=== PATIENT | female | born 1990 | race Caucasian/White ===

== ENCOUNTER 2020-06-22 23:20 | Inpatient (IN) | payer OTHER, SELFPAY ==
[~2020-06-22] VITALS: Ht 160 cm; Wt 75.9 kg
[2020-06-22 23:25] VITALS: BP_SYST 115
--- NOTE | 2020-06-22 23:25 | NUR ---
PT TO BED 2, GOWNED AND ATTACHED TO MONITOR.
--- NOTE | 2020-06-22 23:25 | NUR ---
Patient AAO x 4 and ambulatory arrived to ED C/O allergic reaction and N/V/D. Patient stated having local anesthia for surgery at [facility]. current pain level is 7/10 on the pain scale. waiting for MD evaluation.
--- NOTE | 2020-06-22 23:28 | NUR ---
DR. PEREZ AT BEDSIDE TO EVALUATE PT STATUS.
[2020-06-22] MEDS ORDERED: LR 2,000 ML IV ONE (23:30)
--- NOTE | 2020-06-22 23:51 | NUR ---
DR. COX AT BEDSIDE TO EVALUATION PATIENT.
[2020-06-23] VITALS (20 sets, daily range): BP systolic 92–137
[2020-06-23 00:06] LABS: EOSINOPHILS % (AUTO) 0.2 % (0.0-4.0); HEMATOCRIT 38.6 % (36-48); LYMPHOCYTES # (AUTO) 0.3 K/uL (1.0-5.5); LYMPHOCYTES % (AUTO) 8.8 % (20.5-51.5); MEAN CORPUSCULAR HEMOGLOBIN 28 pg (27-31); MEAN CORPUSCULAR HGB CONC 34 % (32-36); MEAN CORPUSCULAR VOLUME 84 fL (79.0-98.0); MONOCYTES % (AUTO) 0.5 % (1.7-9.3); NEUTROPHILS # (AUTO) 2.6 K/uL (1.8-7.7); NEUTROPHILS % (AUTO) 90.5 % (40.0-70.0); PLATELET COUNT (AUTO) 187 K/uL (130-430); RED BLOOD CELL COUNT(AUTO) 4.63 MIL/uL (4.2-6.2); RED CELL DISTRIBUTION WIDTH 13.4 % (9.0-15.0); WHITE BLOOD COUNT (AUTO) 2.9 K/uL (4.8-10.8)
--- NOTE | 2020-06-23 00:12 | NUR ---
# 22 gauge angiocath placed to right wrist. Use of asceptic technique. Opsite placed over site. Blood return noted. Flushed with 10 cc of normal saline. No evidence of infiltration noted. Patient tolerated well.
--- NOTE | 2020-06-23 00:20 | NUR ---
Rectal temperature taken and read 104.8. Ice packs applied to armpit, groin and neck for immediate cooling measures.
[2020-06-23] MEDS ORDERED: ACETAMINOPHEN 650 MG SUPP.RECT RC ONE ×2 (00:30→00:31)
[2020-06-23 00:31] LABS: ANION GAP 16 (5-15); CALCIUM 8.2 mg/dL (8.4-11.0); CHLORIDE 103 mmol/L (98-107); CREATININE 1.51 mg/dL (0.55-1.30); GLUCOSE 108 mg/dL (70-99); POTASSIUM 3.1 mmol/L (3.5-5.1); SODIUM SERUM 140 mmol/L (136-145); UREA NITROGEN, BLOOD 21 mg/dL (8-21)
[2020-06-23 00:44] LABS: ALANINE AMINOTRANSFERASE 28 U/L (12-78); ALBUMIN 3.3 g/dL (3.4-4.8); ASPARTATE AMINOTRANSFERASE 21 U/L (10-37); BILIRUBIN,DIRECT 0.1 mg/dL (0.0-0.3); FREE T4 (FREE THYROXINE) 1.1 ng/dl (0.8-1.5); LIPASE 88 U/L (73-393); TOTAL BILIRUBIN 0.4 mg/dL (0.0-1.0)
[2020-06-23 00:45] LABS: GFR AFRICAN AMERICAN 53 mL/min (>90); HCG,QUANTITATIVE 1 mIU/ML (0-6)
[2020-06-23] MEDS ORDERED: LORazepam 2 MG/ML VIAL IVP ONE ×2 (00:45→01:30)
--- NOTE | 2020-06-23 00:50 | NUR ---
# 20 gauge angiocath placed to right arm. Use of asceptic technique. Opsite placed over site. Blood return noted. Blood for lab drawn from site. Flushed with 10 cc of normal saline. No evidence of infiltration noted. Patient tolerated well.
--- NOTE | 2020-06-23 00:55 | NUR ---
Dr. Purcell at bedside to administer Dantrium 80 mg additional dose. MD administered medication and patient VSS. no distress noted.
--- NOTE | 2020-06-23 01:10 | NUR ---
Dr. Purcell speaking with poision control for protocols for malignant hypothermia.
--- NOTE | 2020-06-23 01:10 | NUR ---
# 16 FR Yu catheter with use of sterile technique. Immediate return of 150 cc urine noted. Bedside drainage bag placed below level of bladder. Urine sample collected and sent to lab. Pt tolerated procedure. Patient arrived with yu in place, changed due to standard of practice prior to admission.
--- NOTE | 2020-06-23 01:20 | NUR ---
Internal rectal thermometer placed in the rectum at bedside. patient tolerated well. current temperature reading 103.5
--- NOTE | 2020-06-23 01:30 | NUR ---
Temperature reading 103.4. Dr. Purcell at bedside giving additional 200mg of Dantrium IVP per poison control protocols. Addendum: 06/23/20 at 0329 by [email or web address] Correction: Dr. Purcell at bedside to administer an addition 120mg of dantrolene IVP. Total infused 200mg.
--- NOTE | 2020-06-23 01:30 | NUR ---
Labs currently at bedside to collect 2nd lactic acid. patient tolerated well. sent to lab for analysis.
[2020-06-23 01:44] LABS: BILIRUBIN,URINE NEGATIVE (NEGATIVE); BLOOD, URINE 1+ (NEGATIVE); CLARITY/URINE CLEAR (CLEAR); COLOR,URINE YELLOW (YELLOW); GLUCOSE,URINE NEGATIVE (NEGATIVE); KETONES,URINE NEGATIVE (NEGATIVE); LEUKOCYTE ESTERASE ,URINE NEGATIVE (NEGATIVE); NITRITE, URINE NEGATIVE (NEGATIVE); PROTEIN URINE NEGATIVE (NEGATIVE); UROBILINOGEN,URINE 0.2 (0.2-1.0)
[2020-06-23] MEDS ORDERED: NACL 0.9% 1,000 ML IV ONE (01:45)
[2020-06-23] MEDS ORDERED: cefTRIAXone 1 GM IVPB PREMIX 50 ML IV ONE (01:45)
[2020-06-23] MEDS ORDERED: NS 500 ML IV ONE (01:45)
[2020-06-23] MEDS ORDERED: POTASSIUM CHLORIDE 10 MEQ TAB.PRT.SR PO ONE (01:45)
[2020-06-23] MEDS ORDERED: POTASSIUM CHLORIDE 20 MEQ TAB.PRT.SR PO ONE (01:45)
[2020-06-23] MEDS ORDERED: metroNIDAZOLE 500 mg/NS 100 ML IV ONE (01:45)
[2020-06-23 01:52] LABS: BACTERIA,URINE FEW /HPF (None Seen); WBC,URINE 0-3 /HPF (0-3)
[2020-06-23 01:55] LABS: BARBITURATE, URINE NEGATIVE (NEG <=200); BENZODIAZEPINE, URINE NEGATIVE (NEG <=150); CANNABINOID, URINE NEGATIVE (NEG <=50); COCAINE, URINE NEGATIVE (NEG <=150); METHAMPHETAMINES SCREEN,URINE NEGATIVE (NEG <=500); OPIATE, URINE NEGATIVE (NEG <=100); PHENCYCLIDINE SCREEN,URINE NEGATIVE (NEG <=25); UR TRICYCLIC ANTIDEPRESSANTS NEGATIVE (NEG <=300); URINE AMPHETAMINE NEGATIVE (NEG <=500); URINE METHADONE NEGATIVE (NEG <=200); URINE OXYCODONE SCREEN NEGATIVE (NEG <=100); URINE PROPOXYPHENE SCREEN NEGATIVE (NEG <=300)
--- NOTE | 2020-06-23 01:55 | NUR ---
Admit orders were given by MD carlisle to admit patient to ICU for malignant hyperthermia. bed requested at this time.
[2020-06-23] MEDS ORDERED: NOREPINEPHRINE 4 MG/4 ML VIAL IV ONE (02:18)
--- NOTE | 2020-06-23 02:18 | NUR ---
RT at bedside to draw ABG and to be sent to Lab for analysis.
--- NOTE | 2020-06-23 02:24 | NUR ---
Dr. Purcell speaking with [facility] control at this time.
--- NOTE | 2020-06-23 02:25 | NUR ---
Belongings done at bedside. Mother took belongings home. Only [facility] patient has is phone, phone real estate transaction coordinator, and earphones.
[2020-06-23] MEDS ORDERED: NOREPINEPHRINE BITARTRATE 4 MG in NS 246 ML IV PRN (02:30)
[2020-06-23] MEDS ORDERED: NOREPINEPHRINE BITARTRATE 8 MG in NS 242 ML IV PRN (02:30)
--- NOTE | 2020-06-23 02:44 | NUR ---
dr. Purcell at bedside to place triple lumen central line to right femoral vein. good blood return. flushes without difficulties. 3 sterile caps attached to lumen. Central line secured safely with sutures to thigh. clean dry dressing applied to central line. patient tolerated well. no use of lidocaine was used during procedure due to allergic reaction to previous use.
--- NOTE | 2020-06-23 03:10 | NUR ---
Dr. Purcell at bedside to administer an addition 120mg of Dantrium with current temperature of 101.6 per poison control protocols. patient tolerating well. Addendum: 06/23/20 at 0330 by [email or web address] Correction: Dr. Purcell at bedside to administer an addition 200mg of dantrolene IVP. Patient received a total of 400mg. Patient tolerated medication administration well. no signs of adverse reactions.
--- NOTE | 2020-06-23 03:20 | NUR ---
Jensen EMPTIED TOTAL OUTPUT IS 1600CC. CLEAR YELLOW URINE.
--- NOTE | 2020-06-23 03:22 | NUR ---
In total patient was administered 400mg of Dantrolene IVP.
--- NOTE | 2020-06-23 03:30 | NUR ---
Patient will be admitted to care of [facility]. Admitted to ICU unit. Will go to room 3. Belongings list completed. Complete and up to date summary report printed. SBAR report to be given at bedside with opportunity for questions.
--- NOTE | 2020-06-23 03:32 | NUR ---
Transfer to ICU via ACLS protocol. Licensed nurse present. IV present no signs or symptoms of infiltration.
--- NOTE | 2020-06-23 03:50 | NUR ---
ADMISSION NOTE Received patient from ER via jeannine, received report from MISHEL MITCHELL. Patient admitted with diagnosis of MALIGNANT HYPER THERMIA. CURRENT RECTAL TEMP 101.3, COOLING MEASURES ACTIVATED. PT LETHARGIC BUT ABLE TO FOLLOW COMMANDS. VSS, NO S/S OF ACUTE DSITRESS NOTED. WILL CONTINUE TO MONITOR PT.
--- NOTE | 2020-06-23 05:53 | NUR ---
FAMILY UPDATE SPOKE WITH PTS MOTHER ELEONORA DENNY AT THIS TIME AND PROVIDED UPDATES. ALL QUESTIONS ANSWERED. WILL CONTINUE TO MONITOR PT.
--- NOTE | 2020-06-23 06:10 | NUR ---
POISON CONTROL POISON CONTROL CALLED FOR UPDATE, UPDATES PROVIDED. PER POISON CONTROL TEMPERATURE IS GREATLY IMPROVED, CONTINUE SUPPORTIVE MEASURES. WILL CARRY OUT SUGGESTED.
--- NOTE | 2020-06-23 07:30 | NUR ---
ENDORSEMENT BEDSIDE REPORT GIVEN TO MU MITCHELL USING SBAR APPROACH.
--- NOTE | 2020-06-23 07:40 | NUR ---
Opening Received report from endorsing RN. Pt lethargic, oriented x3 and forgetful, on 2L O2 via nasal cannula. Pt states no pain or distress at this time. Temp 100.5 currently with rectal probe, pt keeps removing cooling blanket. Educated pt on treatment for hyperthermia. Segundo in place draining urine to gravity. Bed in lowest position, call light in reach.
[2020-06-23] MEDS ORDERED: MAGNESIUM SULFATE 50 ML IV PRN (08:00)
[2020-06-23] MEDS ORDERED: ZOLPIDEM TARTRATE 5 MG TABLET PO PRN (08:00)
[2020-06-23] MEDS ORDERED: LORazepam 2 MG/ML VIAL IVP PRN (08:00)
[2020-06-23] MEDS ORDERED: MUPIROCIN 2% TOPICAL OINTMENT 22 GM NS PRN (08:00)
[2020-06-23] MEDS ORDERED: DOCUSATE SODIUM 100 MG CAPSULE PO PRN (08:00)
[2020-06-23] MEDS ORDERED: POTASSIUM CHLORIDE 20 MEQ TAB.PRT.SR PO PRN (08:00)
[2020-06-23] MEDS ORDERED: ONDANSETRON HCL 4 MG/2 ML VIAL IVP PRN (08:00)
--- NOTE | 2020-06-23 08:20 | NUR ---
PT REMOVED COOLING BLANKET. PLACED COOLING BLANKET BACK ON PT, VERBALIZED EDUCATION TO PT REGARDING PT'S TEMP AND IMPORTANCE OF COOLING BLANKET, PT VERBALIZED UNDERSTANDING.
[2020-06-23 08:22] LABS: HEMATOCRIT 37.6 % (36-48); HEMOGLOBIN 12.2 g/dL (12.0-16.0); LYMPHOCYTES # (AUTO) 0.1 K/uL (1.0-5.5); LYMPHOCYTES % (AUTO) 0.7 % (20.5-51.5); MEAN CORPUSCULAR HEMOGLOBIN 28 pg (27-31); MEAN CORPUSCULAR HGB CONC 33 % (32-36); MEAN CORPUSCULAR VOLUME 85 fL (79.0-98.0); MONOCYTES # (AUTO) 0.1 K/uL (0.0-1.0); MONOCYTES % (AUTO) 0.3 % (1.7-9.3); NEUTROPHILS # (AUTO) 18.3 K/uL (1.8-7.7); PLATELET COUNT (AUTO) 138 K/uL (130-430); RED BLOOD CELL COUNT(AUTO) 4.44 MIL/uL (4.2-6.2); RED CELL DISTRIBUTION WIDTH 13.6 % (9.0-15.0); WHITE BLOOD COUNT (AUTO) 18.5 K/uL (4.8-10.8)
[2020-06-23 08:40] LABS: ALBUMIN 2.9 g/dL (3.4-4.8); CALCIUM 7.7 mg/dL (8.4-11.0); CREATININE 1.18 mg/dL (0.55-1.30); POTASSIUM 3.8 mmol/L (3.5-5.1); TOTAL BILIRUBIN 0.9 mg/dL (0.0-1.0)
[2020-06-23] MEDS ORDERED: metroNIDAZOLE 500 mg/NS 100 ML IV SCH (10:00)
--- NOTE | 2020-06-23 10:05 | NUR ---
PHYSICAL THERAPIST PETER WITH PATIENT AT BEDSIDE AT THIS TIME.
--- NOTE | 2020-06-23 10:06 | NUR ---
Called Dr. Flowers with a consult, spoke with An from doctors office
[2020-06-23] MEDS: NACL 0.9% 1,000 ML IV SCH ×2 (10:18→17:12)
--- NOTE | 2020-06-23 10:18 | NUR ---
COOLING BLANKET OFF, PT CONTINUES TO REMOVE IT, PLACED COOLING BLANKET BACK ON PT, EDUCATION GIVEN ON PT TEMP, PT VERBALIZED UNDERSTANDING. IV FLUIDS REPLACED ORDERED PER MD AND PT STATING FEELING NAUSEOUS, ADMINISTERED PRN MED ORDERED PER MD, EDUCATION GIVEN, TOLERATED WELL. CONTINUE TO MONITOR.
[2020-06-23] MEDS: ACETAMINOPHEN 325 MG TABLET PO PRN ×2 (10:23→17:12)
--- NOTE | 2020-06-23 10:23 | NUR ---
ADMINISTERED PRN MED FOR FEVER ORDERED PER MD, EDUCATION GIVEN, TOLERATED WELL. PT STATING BEING TOO TIRED, FED PT BREAKFAST, EDUCATED PT ON AUTONOMY AND PRACTICING FEEDING SELF. ASKED PT IF SHE WAS ABLE TO FEED SELF, PT STATED, "I CAN TRY." PLACED TRAY IN FRONT OF PT, PT ABLE TO FEED SELF, TOLERATING FOOD WELL. VERBALIZED TO PT TO USE RED CALL LIGHT IF NEEDING ASSISTANCE, PT VERBALIZED UNDERSTANDING.
--- NOTE | 2020-06-23 10:58 | NUR ---
Spoke w/ [facility] public health analyst-pt is stable for transfer to [facility]. CARL Villalpando to call back regarding transfer to [facility] [phone]
--- NOTE | 2020-06-23 11:39 | NUR ---
TEMP 101.3 AT THIS TIME, PT TOOK OFF COOLING BLANKET ONCE MORE, VERBALIZED TO PT THE IMPORTANCE OF COOLING BLANKET, STATED THAT PT'S TEMP IS AT 101.3 AT THIS TIME, PT VERBALIZED UNDERSTANDING.
--- NOTE | 2020-06-23 11:41 | NUR ---
Nutrition Update Phoenix Scale 16 noted. Pt admitted for malignant hyperthermia. Diet: regular BMI: 29.6 kg/m2 RD to follow per nutrition care standards.
--- NOTE | 2020-06-23 12:02 | NUR ---
TEMP 101.0 AT THIS TIME. ALL NEEDS MET. CALL LIGHT IN REACH.
--- NOTE | 2020-06-23 12:17 | NUR ---
pt attempting to get out of bed, pt states, "I have to pee" multiple times, stated to pt that she has a yu catheter. pt denies needing to have a bm at this time. pt removes cooling blanket multiple times, continually verbalized the importance of cooling blanket to pt, temp at 100.7 time. administered prn agitation medication as ordered per md, tolerated well. pt placed back in bed with cooling blanket and call light in reach. collected urine sample, will be given to lab.
[2020-06-23 12:49] LABS: HCG,QUAL RESULT NEGATIVE (NEGATIVE)
--- NOTE | 2020-06-23 13:20 | NUR ---
gave pt bed bath and changed linen with ella lamb. pt tolerated well.
[2020-06-23] MEDS ORDERED: metroNIDAZOLE 250 mg/NS 50 ML IV SCH (14:00)
--- NOTE | 2020-06-23 15:00 | NUR ---
COOLING BLANKET OFF. PLACED COOLING BLANKET BACK ON PATIENT. TEMP AT 100.7 AT THIS TIME.
[2020-06-23] MEDS ORDERED: [UNRECOGNIZED DRUG - REMARK] PO (16:45)
[2020-06-23] MEDS ORDERED: SERT50TA PO (16:45)
--- NOTE | 2020-06-23 16:45 | NUR ---
SPOKE TO PATIENT'S MOTHER, ELEONORA DENNY ON FACE SHEET. STATED THE PATIENT'S HOME MEDS THAT PATIENT TAKES AT HOME.
--- NOTE | 2020-06-23 17:19 | NUR ---
REPLACED IV FLUIDS AND ADMINISTERED PRN TYLENOL ORDERED PER MD, TOLERATED WELL.
--- NOTE | 2020-06-23 17:23 | NUR ---
PT ACCEPTED TO [facility], SPOKE TO CONTACT PRINTER DRY FILM MERY. RISK CONTROL CONSULTANT TIME AT 1999. Addendum: 06/23/20 at 1726 by Henna Mccormick RN MERY STATED WILL FAX OVER PAPERWORK TO [phone], SPOKE TO [employer] TEACHER KENDRA REGARDING INCOMING PAPERWORK
--- NOTE | 2020-06-23 17:30 | NUR ---
seen by dr. briceno at bedside.
--- NOTE | 2020-06-23 17:54 | NUR ---
CLEANED PT WITH PAULA DOBBINS. TOLERATED WELL.
[2020-06-23] MEDS ORDERED: FLUCONAZOLE 100 mg/ NS 50 ML IV SCH (18:00)
[2020-06-23] MEDS ORDERED: VANCOMYCIN HCL 1 GM/NS PREMIX 250 ML IV ONE (18:30)
--- NOTE | 2020-06-23 18:57 | NUR ---
administered iv abx as ordered per md, education given, tolerated well.
--- NOTE | 2020-06-23 19:20 | NUR ---
Pt resting quietly, easily awakened, becomes alert and responsive. Pt AAOx3, yet groggy. Cooling blanket not on pt, as she states that it is uncomfortable. Rectal Temp 99.9. Cooling blanket placed back over pt and she was instructed on the importance of keeping blanket to keep her temperature under control. Dsg to I&D site remains in place, no visible bleeding noted. Triple lumen Right Femoral Central line secure and intact, Flagyl IVPB currently infusing with no infiltration noted to site. PIVs to RAC and Left wrist patent and secure. Pt denies pain or discomfort at this time.
--- NOTE | 2020-06-23 19:30 | NUR ---
CLOSING NOTES PT AWAKE IN BED ON THE PHONE. NONLABORED BREATHING NOTED ON ROOM AIR, TOLERATING WELL. IV LINES INTACT AND PATENT, NO SIGNS OF INFILTRATION NOTED. PERERA CATHETER INTACT AND DRAINING. COOLING BLANKET ON, TEMP AT 99.8. NO ACUTE DISTRESS NOTED. ALL NEEDS MET. CALL LIGHT IN REACH. FALL AND ASPIRATION PRECAUTIONS IN PLACE. NO ACTIVE BLEEDING ON I&D SITE NOR ERYTHEMA NOTED, MISHEL HOUSE SUP WITNESS. ENDORSED CARE TO PAULA CHAVEZ INCLUDING BELONGINGS LIST TO BE DONE. RN VERBALIZED UNDERSTANDING.
--- NOTE | 2020-06-23 20:00 | NUR ---
Pt provided with small sips of water.
--- NOTE | 2020-06-23 20:25 | NUR ---
Spoke with pts mother ( Francine [phone]) to given an update on pts status. She states that she is currently here in the hospital waiting room. Verified with Francine that she did take pts belongings home.
--- NOTE | 2020-06-23 21:00 | NUR ---
[facility] ambulance arrives. Pt alert, responsive, NAD. Denies c/o pain or discomfort. Rectal Temp 100, P 88, R 18, B/P 127/54, SPO2 97% RA. Vancomycin discontinued with total volume of 150 infused. PIV sites and Central line remain intact with no s/s infiltration. F/C in place with total U/O 700 mL clear yellow. Dsg to I&D site clean, dry, intact. Cooling blanket and rectal thermometer removed and Ice packs applied to nape of neck, bilat axila, and groin.
--- NOTE | 2020-06-23 21:02 | NUR ---
Called to inform pts mother that pt is now being transferred.
--- NOTE | 2020-06-23 21:05 | NUR ---
PT TRANSFERRED Transfer packet with Transfer Orders and Medication Reconciliation form given to EMT with report. Exitcare provided. [facility] ID band removed, replaced with ID band with pt's name and . Belonging list included with packet. No active bleeding noted to I&D dressing. Patient left floor via gurney escorted by EMT in no distress.
[2020-06-24] MEDS ORDERED: cefTRIAXone 1 GM in D5W 50 ML IV SCH (02:00)
== END 2020-06-23 21:07 | disposition short-term general hospital (02) | DRG 720 ==
LOC: SED 23:20 → SIC 06-23 02:02
PROVIDERS: ADMIT General Practice; ATTEND General Practice
DX: A41.9 Sepsis, unspecified organism (principal); K52.9 Noninfective gastroenteritis and colitis, unspecified; N17.0 Acute kidney failure with tubular necrosis; E87.6 Hypokalemia; E87.2 Acidosis; N75.0 Cyst of Bartholin's gland; R09.02 Hypoxemia; T41.45XA Adverse effect of unspecified anesthetic, initial encounter; T88.3XXA Malignant hyperthermia due to anesthesia, initial encounter; G93.41 Metabolic encephalopathy; Y83.8 Other surgical procedures as the cause of abnormal reaction of the patient, or of later complication, without mention of misadventure at the time of the procedure; Z56.0 Unemployment, unspecified; Y92.89 Other specified places as the place of occurrence of the external cause; Z20.822 Contact with and (suspected) exposure to COVID-19
CPT/HCPCS: 36415; 71045; 80048; 80053; 80076; 80307; 81000-TC; 82550-TC; 82803-TC; 83605; 83690-TC; 84439; 84443-TC; 84484; 84702-TC; 84703; 85025; 87040-TC; 87081; 93005; 96361; 96365; 96368; 96375; 97163; 99291; J0696; J1450; J2060; J2405; J3370; J3490; J7030; J7060